=== PATIENT | female | born 1960 | race Caucasian/White ===

== ENCOUNTER 2022-01-17 12:29 | Emergency (ER) | payer OTHER ==
[~2022-01-17] VITALS: Ht 167.6 cm; Wt 112.5 kg
[2022-01-17 12:34] VITALS: BP 159/84
--- NOTE | 2022-01-17 12:40 | NUR ---
pt ambulated to bed 11
[2022-01-17 12:41] VITALS: BP 159/84
[2022-01-17] MEDS ORDERED: NAPR-54 PO (12:55)
[2022-01-17] MEDS ORDERED: CYCLOBENZAPRINE 10 MG TAB PO ONE (12:55)
[2022-01-17] MEDS ORDERED: CYCL-711 PO (12:55)
[2022-01-17] MEDS ORDERED: KETOROLAC 30 MG/ML VIAL IM ONE (12:55)
--- NOTE | 2022-01-17 13:20 | NUR ---
Patient discharged with v/s stable. Written and verbal after care instructions given and explained. Patient verbalized understanding. Ambulatory with steady gait. All questions addressed prior to discharge. Advised to follow up with PMD.
== END 2022-01-17 13:03 | disposition home or self-care (01) ==
LOC: MED 12:29
DX: S16.1XXA Strain of muscle, fascia and tendon at neck level, initial encounter (principal); E11.9 Type 2 diabetes mellitus without complications; I10 Essential (primary) hypertension; Z88.1 Allergy status to other antibiotic agents; Z88.8 Allergy status to other drugs, medicaments and biological substances; Z79.899 Other long term (current) drug therapy; V89.2XXA Person injured in unspecified motor-vehicle accident, traffic, initial encounter; Y93.89 Activity, other specified; Y92.89 Other specified places as the place of occurrence of the external cause; Y99.8 Other external cause status
CPT/HCPCS: 96372; 99283; J1885